=== PATIENT | male | born 1945 | race Caucasian/White ===

== ENCOUNTER 2022-12-01 15:56 | Inpatient (IN) | payer OTHER ==
[~2022-12-01] VITALS: Ht 177.8 cm; Wt 91.6 kg
[2022-12-01 16:04] VITALS: BP_SYST 144
[2022-12-01] MEDS ORDERED: dilTIAZem HCL IVP 5 MG/ML VIAL IVP ONE ×3 (16:30→19:30)
[2022-12-01] MEDS ORDERED: cefTRIAXone 1 GM in D5W 50 ML IV ONE (16:30)
[2022-12-01] MEDS ORDERED: NACL 0.9% 1,000 ML IV ONE ×2 (16:30→19:30)
[2022-12-01] MEDS ORDERED: cefTRIAXone 1 GM VIAL ONE (16:48)
[2022-12-01 17:03] LABS: BASOPHILS % (AUTO) 0.1 % (0.0-2.0); HEMATOCRIT 45.3 % (36-54); HEMOGLOBIN 14.9 g/dL (14.0-18.0); LYMPHOCYTES # (AUTO) 0.7 K/uL (1.0-5.5); LYMPHOCYTES % (AUTO) 4.8 % (20.5-51.5); MEAN CORPUSCULAR HEMOGLOBIN 32 pg (27-31); MEAN CORPUSCULAR HGB CONC 33 % (32-36); MEAN CORPUSCULAR VOLUME 96 fL (79.0-98.0); MONOCYTES # (AUTO) 1.7 K/uL (0.0-1.0); MONOCYTES % (AUTO) 11.8 % (1.7-9.3); NEUTROPHILS # (AUTO) 12.2 K/uL (1.8-7.7); NEUTROPHILS % (AUTO) 83.3 % (40.0-70.0); PLATELET COUNT (AUTO) 260 K/uL (130-430); RED BLOOD CELL COUNT(AUTO) 4.71 MIL/uL (4.2-6.2); RED CELL DISTRIBUTION WIDTH 13.9 % (9.0-15.0); WHITE BLOOD COUNT (AUTO) 14.6 K/uL (4.8-10.8)
[2022-12-01 17:14] LABS: INR 1.3 (0.80-1.20); PROTHROMBIN TIME 13.6 SECS (9.5-12.5)
[2022-12-01] MEDS ORDERED: AZITHROMYCIN 500 MG in NS 250 ML IV ONE (17:15)
[2022-12-01 17:28] LABS: ALANINE AMINOTRANSFERASE 20 U/L (12-78); ALBUMIN 2.6 g/dL (3.4-4.8); ANION GAP 10 (5-15); ASPARTATE AMINOTRANSFERASE 19 U/L (10-37); CALCIUM 9.3 mg/dL (8.4-11.0); CHLORIDE 103 mmol/L (98-107); CREATININE 1.07 mg/dL (0.55-1.30); UREA NITROGEN, BLOOD 24 mg/dL (8-21)
[2022-12-01 17:36] LABS: GLUCOSE 124 mg/dL (70-99)
[2022-12-01] MEDS ORDERED: AZITHROMYCIN 500 MG/VIAL (ZITHROMAX) IV ONE (17:46)
[2022-12-01 17:50] LABS: C-REACTIVE PROTEIN QUANT 27.3 mg/dL (0-0.5)
[2022-12-01 18:33] LABS: CLARITY/URINE CLOUDY (CLEAR)
[2022-12-01 18:34] LABS: COLOR,URINE ORANGE (YELLOW)
[2022-12-01 18:50] LABS: BACTERIA,URINE MODERATE /HPF (None Seen); MUCUS,URINE 1+ /LPF (None Seen); WBC,URINE 50-80 /HPF (0-3)
[2022-12-01] MEDS ORDERED: enalapril (19:14)
[2022-12-01] MEDS ORDERED: FINA5TAB3 PO (19:14)
[2022-12-01] MEDS ORDERED: TAMS-11 PO (19:14)
[2022-12-01] MEDS ORDERED: APIX5TAB4 PO (19:14)
[2022-12-01] MEDS ORDERED: LORazepam 2 MG/ML VIAL IVP PRN (19:15)
[2022-12-01] MEDS ORDERED: MAGNESIUM SULFATE 50 ML IV PRN (19:15)
[2022-12-01] MEDS ORDERED: DECADRON 4 MG TABLET PO SCH (19:15)
[2022-12-01] MEDS ORDERED: IPRATROPIUM/ALBUTEROL SULFATE 3 ML AMPUL.NEB (DUONEB) INH PRN (19:15)
[2022-12-01] MEDS ORDERED: POTASSIUM CHLORIDE 20 MEQ TAB.PRT.SR PO PRN (19:15)
[2022-12-01] MEDS ORDERED: MORPHINE 2 MG/ML INJ. SYRINGE IVP PRN ×2 (19:15)
[2022-12-01] MEDS ORDERED: ONDANSETRON HCL 4 MG/2 ML VIAL IVP PRN (19:15)
[2022-12-01] MEDS ORDERED: DOCUSATE SODIUM 100 MG CAPSULE PO PRN (19:15)
[2022-12-01] MEDS ORDERED: ACETAMINOPHEN 325 MG TABLET PO PRN (19:15)
[2022-12-01] MEDS ORDERED: MUPIROCIN 2% TOPICAL OINTMENT 22 GM NS PRN (19:15)
[2022-12-01] MEDS ORDERED: ZOLPIDEM TARTRATE 5 MG TABLET PO PRN (19:15)
[2022-12-01 23:16] VITALS: BP_SYST 142
[2022-12-02 02:44] VITALS: BP_SYST 139
[2022-12-02] MEDS: FINASTERIDE 5 MG TABLET (PROSCAR) PO SCH ×2 (03:19→20:55)
[2022-12-02] MEDS: METOPROLOL TARTRATE 25 MG TABLET PO SCH ×3 (03:19→20:55)
[2022-12-02] MEDS: APIXABAN 2.5 MG TABLET PO SCH ×3 (03:22→20:55)
[2022-12-02 07:19] LABS: BASOPHILS % (AUTO) 0.1 % (0.0-2.0); HEMATOCRIT 43.5 % (36-54); HEMOGLOBIN 14.6 g/dL (14.0-18.0); LYMPHOCYTES # (AUTO) 0.6 K/uL (1.0-5.5); LYMPHOCYTES % (AUTO) 4.5 % (20.5-51.5); MEAN CORPUSCULAR HEMOGLOBIN 32 pg (27-31); MEAN CORPUSCULAR HGB CONC 33 % (32-36); MEAN CORPUSCULAR VOLUME 96 fL (79.0-98.0); MONOCYTES # (AUTO) 1.2 K/uL (0.0-1.0); MONOCYTES % (AUTO) 9.1 % (1.7-9.3); NEUTROPHILS # (AUTO) 11.5 K/uL (1.8-7.7); NEUTROPHILS % (AUTO) 86.3 % (40.0-70.0); PLATELET COUNT (AUTO) 261 K/uL (130-430); RED BLOOD CELL COUNT(AUTO) 4.52 MIL/uL (4.2-6.2); RED CELL DISTRIBUTION WIDTH 14.2 % (9.0-15.0); WHITE BLOOD COUNT (AUTO) 13.4 K/uL (4.8-10.8)
[2022-12-02 07:51] LABS: ANION GAP 9 (5-15); CALCIUM 9.3 mg/dL (8.4-11.0); CHLORIDE 104 mmol/L (98-107); CREATININE 1.12 mg/dL (0.55-1.30); GLUCOSE 152 mg/dL (70-99); UREA NITROGEN, BLOOD 29 mg/dL (8-21)
[2022-12-02 08:00] VITALS: BP_SYST 151
[2022-12-02 08:01] LABS: ERYTHROCYTE SEDIMENTATION RATE 113 MM/HR (0-15)
[2022-12-02 08:29] LABS: C-REACTIVE PROTEIN QUANT 28.4 mg/dL (0-0.5)
[2022-12-02] MEDS ORDERED: AZITHROMYCIN 250 MG TABLET PO SCH (09:00)
[2022-12-02] MEDS: ASCORBIC ACID 500 MG TABLET PO SCH (09:22)
[2022-12-02] MEDS: CHOLECALCIFEROL (VITAMIN D3) 2,000 UNIT TABLET PO SCH (09:22)
[2022-12-02] MEDS: TAMSULOSIN HCL 0.4 MG CAP PO SCH (09:22)
[2022-12-02] MEDS ORDERED: AZITHROMYCIN 250 MG TABLET PO ONE (10:00)
[2022-12-02] MEDS: cefTRIAXone 1 GM in D5W 50 ML IV SCH (10:19)
[2022-12-02 12:00] VITALS: BP_SYST 114
[2022-12-02 16:00] VITALS: BP_SYST 121
[2022-12-02] MEDS ORDERED: DECADRON 4 MG TABLET PO SCH (19:15)
[2022-12-02 19:50] VITALS: BP_SYST 128
[2022-12-03 01:20] VITALS: BP_SYST 129
[2022-12-03 05:22] LABS: BASOPHILS % (AUTO) 0.2 % (0.0-2.0); HEMATOCRIT 42.8 % (36-54); HEMOGLOBIN 14.4 g/dL (14.0-18.0); LYMPHOCYTES % (AUTO) 6.8 % (20.5-51.5); MEAN CORPUSCULAR HEMOGLOBIN 32 pg (27-31); MEAN CORPUSCULAR HGB CONC 34 % (32-36); MEAN CORPUSCULAR VOLUME 95 fL (79.0-98.0); MONOCYTES # (AUTO) 0.6 K/uL (0.0-1.0); MONOCYTES % (AUTO) 4.2 % (1.7-9.3); NEUTROPHILS # (AUTO) 13.7 K/uL (1.8-7.7); NEUTROPHILS % (AUTO) 88.8 % (40.0-70.0); PLATELET COUNT (AUTO) 297 K/uL (130-430); RED BLOOD CELL COUNT(AUTO) 4.49 MIL/uL (4.2-6.2); RED CELL DISTRIBUTION WIDTH 14.1 % (9.0-15.0); WHITE BLOOD COUNT (AUTO) 15.4 K/uL (4.8-10.8)
[2022-12-03 05:40] LABS: ANION GAP 12 (5-15); CALCIUM 9.1 mg/dL (8.4-11.0); CHLORIDE 105 mmol/L (98-107); CREATININE 0.87 mg/dL (0.55-1.30); GLUCOSE 170 mg/dL (70-99); UREA NITROGEN, BLOOD 34 mg/dL (8-21)
[2022-12-03 05:46] LABS: ALANINE AMINOTRANSFERASE 23 U/L (12-78); ALBUMIN 2.2 g/dL (3.4-4.8); ASPARTATE AMINOTRANSFERASE 18 U/L (10-37); CHOLESTEROL 87 mg/dL (<200); HDL CHOLESTEROL 31 mg/dL (>45); LIPASE 108 U/L (73-393); TOTAL BILIRUBIN 0.5 mg/dL (0.0-1.0); TRIGLYCERIDES 64 mg/dL (30-150)
[2022-12-03 06:56] LABS: ERYTHROCYTE SEDIMENTATION RATE 100 MM/HR (0-15)
[2022-12-03 08:27] VITALS: BP_SYST 116
[2022-12-03] MEDS: CHOLECALCIFEROL (VITAMIN D3) 2,000 UNIT TABLET PO SCH (08:52)
[2022-12-03] MEDS: TAMSULOSIN HCL 0.4 MG CAP PO SCH (08:53)
[2022-12-03] MEDS: METOPROLOL TARTRATE 25 MG TABLET PO SCH ×2 (08:53→21:49)
[2022-12-03] MEDS: ASCORBIC ACID 500 MG TABLET PO SCH (08:53)
[2022-12-03] MEDS: cefTRIAXone 1 GM in D5W 50 ML IV SCH (08:54)
[2022-12-03] MEDS: APIXABAN 2.5 MG TABLET PO SCH ×2 (09:04→21:54)
[2022-12-03 12:30] VITALS: BP_SYST 114
[2022-12-03] MEDS: PIPERACILLIN/TAZO 3.375/DEX-IS 50 ML IV SCH ×2 (13:36→21:51)
[2022-12-03] MEDS: DECADRON 4 MG TABLET PO SCH (16:09)
[2022-12-03 16:52] VITALS: BP_SYST 140
[2022-12-03 19:00] VITALS: BP_SYST 141
[2022-12-03 20:00] VITALS: BP_SYST 141
[2022-12-03] MEDS: FINASTERIDE 5 MG TABLET (PROSCAR) PO SCH (21:49)
[2022-12-04 01:49] VITALS: BP_SYST 120
[2022-12-04] MEDS: PIPERACILLIN/TAZO 3.375/DEX-IS 50 ML IV SCH ×2 (05:14→13:47)
[2022-12-04 05:35] LABS: BASOPHILS % (AUTO) 0.1 % (0.0-2.0); HEMATOCRIT 46.6 % (36-54); HEMOGLOBIN 15.3 g/dL (14.0-18.0); LYMPHOCYTES # (AUTO) 1.3 K/uL (1.0-5.5); LYMPHOCYTES % (AUTO) 8.1 % (20.5-51.5); MEAN CORPUSCULAR HEMOGLOBIN 32 pg (27-31); MEAN CORPUSCULAR HGB CONC 33 % (32-36); MEAN CORPUSCULAR VOLUME 96 fL (79.0-98.0); MONOCYTES # (AUTO) 0.9 K/uL (0.0-1.0); MONOCYTES % (AUTO) 5.8 % (1.7-9.3); NEUTROPHILS # (AUTO) 14.1 K/uL (1.8-7.7); PLATELET COUNT (AUTO) 366 K/uL (130-430); RED BLOOD CELL COUNT(AUTO) 4.83 MIL/uL (4.2-6.2); RED CELL DISTRIBUTION WIDTH 14.1 % (9.0-15.0); WHITE BLOOD COUNT (AUTO) 16.4 K/uL (4.8-10.8)
[2022-12-04 06:01] LABS: ALANINE AMINOTRANSFERASE 30 U/L (12-78); ALBUMIN 2.3 g/dL (3.4-4.8); ANION GAP 9 (5-15); ASPARTATE AMINOTRANSFERASE 22 U/L (10-37); C-REACTIVE PROTEIN QUANT 10.3 mg/dL (0-0.5); CALCIUM 9.2 mg/dL (8.4-11.0); CHLORIDE 104 mmol/L (98-107); CREATININE 1.11 mg/dL (0.55-1.30); GLUCOSE 130 mg/dL (70-99); TOTAL BILIRUBIN 0.5 mg/dL (0.0-1.0); UREA NITROGEN, BLOOD 36 mg/dL (8-21)
[2022-12-04 08:00] VITALS: BP_SYST 153
[2022-12-04] MEDS: DOCUSATE SODIUM 100 MG CAPSULE PO SCH ×3 (08:08→20:07)
[2022-12-04 08:09] LABS: ERYTHROCYTE SEDIMENTATION RATE 57 MM/HR (0-15)
[2022-12-04] MEDS: ASCORBIC ACID 500 MG TABLET PO SCH (08:09)
[2022-12-04] MEDS: METOPROLOL TARTRATE 25 MG TABLET PO SCH ×2 (08:10→20:07)
[2022-12-04] MEDS: CHOLECALCIFEROL (VITAMIN D3) 2,000 UNIT TABLET PO SCH (08:10)
[2022-12-04] MEDS: TAMSULOSIN HCL 0.4 MG CAP PO SCH (08:11)
[2022-12-04] MEDS: APIXABAN 2.5 MG TABLET PO SCH ×2 (08:14→20:08)
[2022-12-04 12:26] VITALS: BP_SYST 122
[2022-12-04] MEDS: DECADRON 4 MG TABLET PO SCH (16:09)
[2022-12-04 17:08] VITALS: BP_SYST 126
[2022-12-04 20:00] VITALS: BP_SYST 119
[2022-12-04] MEDS: FINASTERIDE 5 MG TABLET (PROSCAR) PO SCH (20:07)
== END 2022-12-04 21:53 | DRG 871 ==
LOC: SED 15:56 → STU 18:59
PROVIDERS: ADMIT General Practice; ATTEND General Practice
PROC: XW033E5 Introduction of Remdesivir Anti-infective into Peripheral Vein, Percutaneous Approach, New Technology Group 5 (ICD-10-PCS; principal; 2022-12-04)
DX: A41.9 Sepsis, unspecified organism (principal); J12.82 Pneumonia due to coronavirus disease 2019; U07.1 COVID-19; J96.91 Respiratory failure, unspecified with hypoxia; I48.20 Chronic atrial fibrillation, unspecified; E44.0 Moderate protein-calorie malnutrition; N39.0 Urinary tract infection, site not specified; J44.0 Chronic obstructive pulmonary disease with (acute) lower respiratory infection; I25.10 Atherosclerotic heart disease of native coronary artery without angina pectoris; E87.6 Hypokalemia; N40.0 Benign prostatic hyperplasia without lower urinary tract symptoms; Z79.01 Long term (current) use of anticoagulants; Z87.891 Personal history of nicotine dependence; Z79.899 Other long term (current) drug therapy; Z68.29 Body mass index [BMI] 29.0-29.9, adult
CPT/HCPCS: 36415; 36600; 71045; 80048; 80053; 80061; 81000; 82550; 82803-TC; 83037; 83605; 83690; 83735; 83880; 84484; 85025; 85379; 85610-TC; 85651-TC; 85730-TC; 86140; 87040; 87070-TC; 87081; 87086; 87205-TC; 93005; 93306; 94760; 96361; 96365; 96367; 96375; 96376; 99291; G0378; J0456; J0696; J2543; J3490; J7050; J7060; J8540; Q0144